=== PATIENT | female | born 2000 | race Caucasian/White ===

== ENCOUNTER 2025-01-02 19:37 | Outpatient (CLI) | payer OTHER, SELFPAY | END 2025-01-02 19:38 | disposition home or self-care (01) | LOC: AMB 01-04 15:38 | PROVIDERS: Visit Provider Emergency Medicine Emergency Medical Services | DX: R06.09 Other forms of dyspnea (principal) | CPT/HCPCS: A0998 ==

== ENCOUNTER 2025-01-05 09:44 | Emergency (ER) | payer OTHER, SELFPAY ==
[2025-01-05 09:58] VITALS: BP 135/87; PULSE 98; RESP 18; TEMP 37.1; O2SAT 98
--- NOTE | 2025-01-05 10:39 | ED.ANXIETY ---
HPI - Anxiety General Chief Complaint: Anxiety Stated Complaint: possible anxiety Time Seen by Provider: 01/05/25 10:10 History of Present Illness HPI narrative: This 24-year-old female is visiting from [facility] as part of a master's program at [employer]. She is reporting anxiety symptoms including feeling anxious about her health, chest discomfort, occasions of nausea and lightheadedness. She states that she has had symptoms like this once before when she was employed at a place that was too stressful. She arrives here with normal vital signs. She does not report any use of medications or street drugs or alcohol. Related Data Home Medications ?Medication ?Instructions ?Recorded ?Confirmed No Known Home Medications 01/05/25 01/05/25 Allergies Allergy/AdvReac Type Severity Reaction Status Date / Time No Known Drug Allergies Allergy Verified 01/05/25 09:58 Review of Systems Status of ROS: Reports: 10 or more systems reviewed and unremarkable except as noted in History and below Narrative: Constitutional: No fevers, no weight gain or loss. Eyes: No discharge. No vision changes. HENT: No congestion, no sore throat, no ear pain. Cardiovascular: No palpitations. Respiratory: No shortness of breath, no wheezes, no cough. Gastrointestinal: No abdominal pain, no vomiting, no diarrhea. Genitourinary: No dysuria, no hematuria. Musculoskeletal: Normal range of motion. Skin: No rashes, no pruritis. Neurological: No dizziness, weakness, sensory change, speech change. Endo/Heme/Allergies: No bruising or bleeding. No polydipsia. Pysch: no suicidality. Anxiety symptoms as described above. All other systems reviewed and are negative. [facility] Social History Smoking Status: Never smoker How often do you have a drink containing alcohol: never How often do you have six or more drinks on one occasion: Never AUDIT-C Alcohol total score: 0 Non-prescribed substance use: denies use Exam Narrative: Exam Narrative: Constitutional: Well-developed, well-nourished, no acute distress. HEENT: Normocephalic, atraumatic. Neck: Normal range of motion. Nontender. Supple. Heart: Regular. No murmurs. Normal rate. Intact distal pulses. Lungs: Clear to auscultation. No chest discomfort. No wheezes, rhonchi, or rales. Abdomen: Normal bowel sounds. Nontender. No rebound tenderness. Genitalia: Deferred. Back: No midline tenderness. Normal range of motion. Extremities: Normal range of motion. No injury. Skin: Intact. No rash. Warm. No erythema or pallor. Neurologic: No altered sensation. No weakness. Alert and oriented. Psychiatric: No suicidality. No insomnia. She reports anxiety symptoms but does not show obvious anxiety symptoms externally. Nursing notes and vitals signs are reviewed. Const: Vital Signs, click to edit/add: Vital Signs - 24 hr 01/05/25 09:58 Temperature 98.7 F Pulse Rate [Pulse Oximeter] 98 Respiratory Rate 18 Blood Pressure [Ri t Upper Arm] 135/87 Pulse Oximetry 98 Oxygen Delivery Me thod Room Air Course Vital Signs Vital signs: Initial Vital Signs Temperature 98.7 F 01/05/25 09:58 Temperature Source Temporal Artery Scan 01/05/25 09:58 Pulse Rate 98 01/05/25 09:58 Respiratory Rate 18 01/05/25 09:58 Blood Pressure 135/87 01/05/25 09:58 Blood Pressure Mean 103 01/05/25 09:58 Blood Pressure Position Sitting 01/05/25 09:58 Pulse Oximetry 98 01/05/25 09:58 Oxygen Delivery Method Room Air 01/05/25 09:58 Vital Signs Temperature 98.7 F 01/05/25 09:58 Pulse Rate 98 01/05/25 09:58 Respiratory Rate 18 01/05/25 09:58 Blood Pressure 135/87 01/05/25 09:58 Pulse Oximetry 98 01/05/25 09:58 Oxygen Delivery Method Room Air 01/05/25 09:58 Temperature 98.7 F 01/05/25 09:58 Pulse Rate 98 01/05/25 09:58 Respiratory Rate 18 01/05/25 09:58 Blood Pressure 135/87 01/05/25 09:58 Pulse Oximetry 98 01/05/25 09:58 Oxygen Delivery Method Room Air 01/05/25 09:58 Medications Administered Medications: Discontinued Medications Generic Name Dose Route Start Last Admin Trade Name Freq PRN Reason Stop Dose Admin Lorazepam 0.5 mg 01/05/25 10:38 01/05/25 10:42 Lorazepam 0.5 Mg Tablet PO 01/05/25 10:39 0.5 mg ONCE ONE Administration MDM - Anxiety MDM Narrative Medical decision making narrative: This patient comes in reporting anxiety symptoms. She does prefer to have a checkup with lab and imaging studies for further reassurance. She did receive an oral dose of Ativan 0.5 mg which helped her feel better. Labs returned with normal findings and bedside ultrasound also shows normal heart and lung anatomy and function. She is okay to be discharged home. I did provide [facility] prescriptions for Zofran and some tablets of Ativan. Lab Data Labs: Lab Results 01/05/25 Range/Units 10:50 WBC 6.56 (4.50-11.00) K/uL RBC 4.18 (4.00-5.20) m/uL Hgb 13.1 (12.0-16.0) gm/dL Hct 39.3 (33.0-51.0) % MCV 94 (80-100) fL MCH 31 (26-34) pg MCHC 33 (32-36) gm/dL RDW Coeff of Alysa 11.6 (11.5-15.5) % Plt Count 239 (140-440) K/uL Neut % (Auto) 73.8 H (42.0-72.0) % Lymph % (Auto) 18.4 L (20-44) % Bladen % (Auto) 7.2 (0.0-11.0) % Eos % (Auto) 0.3 (0.0-7.0) % Baso % (Auto) 0.3 (0.0-3.0) % Neut # (Auto) 4.80 (1.7-7.0) K/uL Lymph # (Auto) 1.20 (0.90-2.90) K/uL Bladen # (Auto) 0.50 (0.00-0.90) K/UL Eos # (Auto) 0.02 (0.00-0.50) K/uL Baso # (Auto) 0.02 (0.00-0.30) K/uL Abs Immat Gran (auto) 0.00 (0.00-0.30) K/uL Imm/Tot Granulo (auto) 0.0 % Sodium 137 (135-149) mmol/L Potassium 4.3 (3.6-5.1) mmol/L Chloride 102 (96-114) mmol/L Carbon Dioxide 26 (20-32) mmol/L Anion Gap 9 (7-15) mEq/L BUN 10 (5-24) mg/dL Creatinine 0.6 (0.5-1.5) mg/dL Estimated GFR 129 ml/min Glucose 96 (60-115) mg/dL Calcium 9.6 (8.4-10.6) mg/dL Discharge Plan Discharge Clinical Impression: Acute anxiety Patient Disposition: Home, Self-Care Condition: Improved Additional Instructions: Take medication as needed and indicated. Follow up with MD or return if worsening symptoms occur. Prescriptions: No Action No Known Home Medications Follow Up/Referrals: Provider,Not a Local [Primary Care Provider, Family Practice] Stand Alone Forms: DDR[employer]eth Info Instructions Procedures Ultrasound Cardiac exam #1: Anatomical areas examined: parasternal long and parasternal short Indications: chest pain Exam type: limited transthoracic echocardiogram Impression: negative exam
[2025-01-05 10:59] LABS: Hematocrit 39.3 % (33.0-51.0); Hemoglobin* 13.1 gm/dL (12.0-16.0); Immature Granulocytes Abs Auto 0.00 K/uL (0.00-0.30); Immature Granulocytes Pct Auto 0.0 %; Mean Corpuscular HGB Conc 33 gm/dL (32-36); Mean Corpuscular Hemoglobin 31 pg (26-34); Mean Corpuscular Volume 94 fL (80-100); RDW Coefficient of Variation % 11.6 % (11.5-15.5); Red Blood Count 4.18 m/uL (4.00-5.20); White Blood Count* 6.56 K/uL (4.50-11.00)
[2025-01-05 11:02] LABS: Lymphocytes Absolute Auto 1.20 K/uL (0.90-2.90); Slide Review Reflex No
[2025-01-05 11:13] LABS: Chloride* 102 mmol/L (96-114); Sodium* 137 mmol/L (135-149)
[2025-01-05 11:14] LABS: Potassium* 4.3 mmol/L (3.6-5.1)
[2025-01-05 11:16] LABS: Blood Urea Nitrogen* 10 mg/dL (5-24); Creatinine* 0.6 mg/dL (0.5-1.5)
[2025-01-05 11:17] LABS: Anion Gap 9 mEq/L (7-15); Calcium* 9.6 mg/dL (8.4-10.6); Carbon Dioxide* 26 mmol/L (20-32); Estimated Glomerular Filt Rate 129 ml/min; Glucose* 96 mg/dL (60-115)
== END 2025-01-05 12:08 | disposition home or self-care (01) ==
PROVIDERS: Emergency Provider Emergency Medicine Emergency Medical Services
DX: F41.9 Anxiety disorder, unspecified (principal)
CPT/HCPCS: 36415; 76604; 76705; 80048; 85025; 93308; 99284; A9270